=== PATIENT | female | born 1995 | race African-American/Black ===

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

== ENCOUNTER 2017-01-14 13:28 | Emergency (ER) | payer MEDICAID ==
[~2017-01-14] VITALS: Ht 167.6 cm; Wt 128.0 kg
[~2017-01-14 13:28] MED LIST: BIRTH CONTROL PILLS; CLAR10 PO
[2017-01-14 13:34] VITALS: BP 143/65
== END 2017-01-14 16:22 | disposition left against medical advice (07) ==
LOC: ER 13:28
DX: M54.9 Dorsalgia, unspecified (principal); Z53.21 Procedure and treatment not carried out due to patient leaving prior to being seen by health care provider